=== PATIENT | female | born 1990 | race Two or more races ===

== ENCOUNTER 2025-02-02 17:55 | Emergency (ER) | payer MEDICAID, SELFPAY ==
[2025-02-02 18:30] VITALS: BP 113/73; PULSE 82; RESP 18; TEMP 36.8; O2SAT 98
--- NOTE | 2025-02-02 19:18 | PD.EDPREG ---
ED OB Contraction Preg RMI/HPI General Chief complaint: General Adult/Misc Complain Stated complaint: SENT BY PROVIDER TO ASSESS HEART TONES Time Seen by Provider: 02/02/25 19:15 Arrival date/time: 02/02/25 17:55 34F at approximately 19 weeks and with no significant PMH presents to ED for evaluation because PCP/OBGYN could not get them in clinic today. Patient denies pain and vaginal bleeding. Limitations: no limitations Related Data Allergies Allergy/AdvReac Type Severity Reaction Status Date / Time No Known Allergies Allergy Verified 02/02/25 17:59 Review of Systems Review of Systems Systems Reviewed: All systems reviewed, normal except as documented Constitutional Constitutional: Reports system reviewed and no additional complaints, except as documented, Denies fever(s) and Denies headache(s) ENT Ears, Nose, Mouth, and Throat: Denies disequilibrium and Denies headache(s) Cardiovascular Cardiovascular: Reports system reviewed and no additional complaints, except as documented, Denies chest pain and Denies dyspnea Respiratory Respiratory: Reports system reviewed and no additional complaints, except as documented, Denies cough and Denies dyspnea Gastrointestinal Gastrointestinal: Reports system reviewed and no additional complaints, except as documented, Denies abdominal pain, Denies nausea and Denies vomiting Neurologic Neurologic: Reports system reviewed and no additional complaints, except as documented, Denies confusion, Denies disequilibrium and Denies headache(s) Psychiatric Psychiatric: Denies confusion Past Medical History Social History SMOKING STATUS: Never smoker ED Exam General Limitations: Present no limitations General appearance: Present alert and in no apparent distress Head Head exam: Present atraumatic Eye Eye exam: Present normal appearance, PERRL and EOMI ENT ENT exam: Present normal exam, normal oropharynx and mucous membranes moist Neck Neck exam: Present normal inspection, full ROM and trachea midline Chest Chest inspection: Present normal inspection and symmetric chest wall rise Respiratory Respiratory exam: Present normal lung sounds bilaterally Cardiovascular Cardiovascular exam: Present regular rate, normal rhythm and normal heart sounds Abdominal Exam Abdominal exam: Present soft and normal bowel sounds Extremities Exam Extremities exam: Present normal inspection and full ROM Back Exam Back exam: Present normal inspection and full ROM Neurological Exam Neurological exam: Present alert, oriented X3 and CN II-XII intact Psychiatric Psychiatric exam: Present normal affect and normal mood Skin Skin exam: Present warm, dry, intact and normal color Course Quality Measures none Orders Category Date Time Status heart tone auscultation NOW Care 02/02/25 19:15 Active Vital Signs Vital signs: Vital Signs Temperature 98.2 F 02/02/25 18:30 Pulse Rate 82 02/02/25 18:30 Respiratory Rate 18 02/02/25 18:30 Blood Pressure 113/73 02/02/25 18:30 Pulse Oximetry (%) 98 02/02/25 18:30 Oxygen Delivery Method Room Air 02/02/25 18:30 O2 at 98% on RA and WNLs OB/Uterine Contractions MDM Narrative MDM Narrative:: 34F at approximately 19 weeks and with no significant PMH presents to ED for evaluation because PCP/OBGYN could not get them in clinic today. Patient denies pain and vaginal bleeding. Physical exam reveals well-appearing female. Patient is afebrile, calm, and alert. FHTs in 140s and is WNLs. Patient data External records reviewed:: None Clinical information provided by:: patient Social determinants that could affect healthcare access:: none Patient has the following chronic illnesses:: none How is presenting disease/condition affected by chronic disease/condition?: no chronic disease Evaluation data The following diagnostics were reviewed and interpreted by me:: radiology exam(s) Lab and/or radiology exams considered but not ordered:: ordered Interpretation Summary: above Medications / Prescriptions Medications or Prescriptions considered but not ordered:: not ordered Medication administrations:: n/a Consultations Consultation(s) initiated? (list below): No Diagnosis OB Contractions Differential Diagnosis: normal delivery at term, hemorrhage, -induced hypertension, premature labor, pre-eclampsia, eclampsia and other (Supervision of normal ) Most likely diagnosis given after review of the tests above:: Supervision of normal Admission Indicated Admission indicated?: not indicated Explain why admission is indicated or not indicated:: outpatient Admission Request Was there a request for admission?: No Disposition Plan Disposition Plan: Discharge Discharge Attestation Discharge Attestation: The patient and all family members were given an opportunity to ask questions and understood the discharge instructions. Discharge instructions specifically effects, indications for sooner follow up or return to the emergency department, and the expected course of current diagnosis. Patient condition: Stable Discharge Plan Plan Patient Disposition: HOME (Self Care) Discharge Disposition comment: Stable Prescriptions/Referrals Referrals: No Primary/Family,Physician [Primary Care Provider] - In 1 week Problem List Clinical Impression: Encounter for supervision of normal , unspecified, second trimester Patient/Caregiver Discharge Instructions Additional Instructions: Please follow-up with PCP/OBGYN within 24-48 hours and return immediately if symptoms worsen. Print Language: Cuban Stand Alone Forms: Patient Portal Info Letter PA/STRAIGHTENING ROLL OPERATOR Supervising Physician PA/STRAIGHTENING ROLL OPERATOR Supervising Physician: Dr. Braxton
[2025-02-02 20:01] VITALS: BP 122/60; PULSE 68; RESP 18; TEMP 36.7; O2SAT 98
== END 2025-02-02 20:02 | disposition home or self-care (01) ==
PROVIDERS: Emergency Provider Emergency Medicine
DX: Z34.92 Encounter for supervision of normal pregnancy, unspecified, second trimester (principal); Z3A.19 19 weeks gestation of pregnancy
CPT/HCPCS: 99282